=== PATIENT | female | born 1980 | race Caucasian/White ===

== ENCOUNTER 2019-02-11 12:37 | Outpatient (CLI) ==
[2018-09-06 17:21] VITALS: BMI 36.6
--- NOTE | 2019-02-12 09:54 | MRI ---
EXAM: Brain MRI without contrast. HISTORY: Headache. COMPARISON: None. TECHNIQUE: Multiplanar, multisequence MR images were acquired of the brain without contrast. FINDINGS: The midline structures are central. The cerebellar tonsils extend 1-2 mm below the forame n magnum which is within normal variation and they have a normal rounded configuration. The ventricl es, sulci and cisterns are normal. There are no abnormal extra-axial fluid collections. The brain parenchyma has no diffusion restriction to suggest acute hypoperfusion or infarction. Ther e is a 1.5 mm faint T2 hyperintensity in the right dorsal mesencephalon near its junction with the po ntine tegmentum that is nonspecific and may represent normal variation. There are no abnormal foci o f dark gradient echo signal. The corpus callosum is normal. The pituitary gland is unremarkable. There are no intraorbital masses. Paranasal sinuses, middle ears and mastoids are unremarkable. Expected flow voids are present in the major intracranial arteries and dural venous sinuses. IMPRESSION: No intracranial mass, hemorrhage or acute cerebral infarct. Unremarkable brain MRI with out contrast.
--- NOTE | 2019-02-13 15:09 | MRI ---
EXAM: Cervical spine MRI without contrast. HISTORY: Neck pain. COMPARISON: None. TECHNIQUE: Multiplanar, multisequence MR images were acquired cervical spine without contrast. FINDINGS: The craniocervical junction is normal. The cervical cord has no abnormal T2 hyperintensit ies. The pituitary gland is low normal in size with mild concavity of the superior border. Small ef fusions are present in both temporal mandibular joints. There is minor cervicothoracic dextroscolios is centered at C5-6 and straightening of the usual cervical doses with slight flexion at C5-6. There is mild anterior disc space narrowing in the mid cervical spine and minor ventral spondylosis at C5- 6 and C6-7. Canal diameter is developmentally normal. There are no paravertebral masses. Visualize d lung apices are clear. C2-3: The intervertebral disc is normal. Mild left uncovertebral hypertrophy is present which cause s minor left foraminal stenosis. C3-4: There is a minor posterior disc bulge with endplate osteophytes that is asymmetric to the righ t and right uncovertebral hypertrophy. This causes mild right lateral recess stenosis where there ma y be encroachment on the ventral right C4 nerve root. There is no central canal stenosis or foramina l stenosis. C4-5: There is a posterior disc osteophyte complex that is asymmetric to the left with a more focal left paracentral component and superimposed disc extrusion that mildly indents the left ventral cord and effaces the left lateral recess where it may adversely contact the left C5 nerve roots. There is no central canal stenosis. Neural foramina are patent. C5-6: There is bony ridging along the midline dorsum of the C5 and upper C6 further and the post kevin gitudinal ligament insertion and there is a mild disc bulge and small central disc protrusion and brenda ular tear that effaces the ventral thecal sac and causes minor spinal stenosis. Neural foramina are patent. AP diameter thecal sac is 9.5 mm. C6-7: There is a minor posterior disc bulge. There is no central canal stenosis or foraminal stenos is. C7-T1: The intervertebral disc is normal. IMPRESSION: 1. Mild cervical degenerative spondylosis which causes minor C5-6 spinal stenosis. 2. 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 3. Mild discogenic disease and small disc protrusion C5-6.
== END 2019-02-11 12:38 | disposition home or self-care (01) ==
LOC: RAD 12:37
PROVIDERS: ATTEND Internal Medicine
DX: G43.909 Migraine, unspecified, not intractable, without status migrainosus (principal); M54.2 Cervicalgia